=== PATIENT | female | born 1950 | race Caucasian/White ===

== ENCOUNTER 2024-11-01 09:37 | Outpatient (OUT) | payer MEDICARE, SELFPAY ==
--- NOTE | 2024-11-01 09:45 | US_ITS ---
The [address] [address] Patient Name: BUSTER LEIJA MRN: [id number] date: 1950 Sex: F Assigned Patient Location: US Current Patient Location: Accession/Order Number: [id number] Exam Date: 11/01/2024 09:50 Report Date: 11/01/2024 10:48 At the request of: JERALD JONES Procedure: US thyroid EXAMINATION: US thyroid HISTORY: Thyroid Nodule, Primary Hypertension COMPARISON: 03/04/2022 TECHNIQUE: Sonographic images of the thyroid gland were obtained. FINDINGS: The right thyroid lobe measures 4.8 x 1.1 x 1.2 cm. Mildly heterogeneous echotexture with 2 focal nodules. The thyroid isthmus measures 2 mm, single nodule The left thyroid lobe measures 4.5 x 1.2 x 1.0 cm. Heterogeneous echotexture with a single 8mm cystic nodule The most suspicious nodule: Right lower lobe. 0.6 x 1.0 x 0.8 cm. Solid, isoechoic, wide, smooth margins, no calcifications. TR 3 US/US thyroid IMPRESSION: Multinodular thyroid gland TI-RADS: TR 3 Electronically authenticated by: RONNIE DUTTA Date: 11/01/2024 10:48
[2024-11-01 10:51] LABS: Basophils Percent Auto 0.6 % (0.2-2.0); Eosinophils Absolute Auto 0.1 10^3/uL (0.0-0.7); Eosinophils Percent Auto 1.3 % (0.9-7.0); Hematocrit 43.5 % (36.0-48.0); Hemoglobin 14.8 g/dL (12.0-16.0); Immature Granulocytes Abs Auto 0.01 10^3/uL (0.00-0.03); Immature Granulocytes Pct Auto 0.2 % (0.0-0.5); Lymphocytes Absolute Auto 1.3 10^3/uL (1.2-3.8); Lymphocytes Percent Auto 23.6 % (20.5-60.0); Mean Corpuscular Hemoglobin 31.4 pg (26.7-34.0); Mean Corpuscular Volume 92.2 fL (81.0-99.0); Mean Platelet Volume 10.1 fL (9.5-13.5); Monocytes Absolute Auto 0.6 10^3/uL (0.3-0.8); Monocytes Percent Auto 10.7 % (1.7-12.0); Neutrophils Absolute Auto 3.5 10^3/uL (1.4-6.5); Neutrophils Percent Auto 63.6 % (43.0-75.0); Platelet Count 216 10^3/uL (150-450); Red Blood Count 4.72 10^6/uL (4.20-5.40); Red Cell Distribution Width 11.9 % (11.0-15.0); White Blood Count 5.4 10^3/uL (4.0-11.0)
[2024-11-01 11:09] LABS: Creatinine Urine Random 25.59 mg/dL (20.00-300.00); Microalbum Creatinine Ratio Ur 50.8 mg/g (0.0-29.9); Microalbumin Urine Random <1.3 mg/dL (<=30.0)
[2024-11-01 11:38] LABS: Anion Gap 7.6; BUN Creatinine Ratio 31.7; Calcium 9.3 mg/dL (8.5-10.1); Carbon Dioxide 32.2 mmol/L (21.0-32.0); Chloride 105 mmol/L (98-107); Estimated GFR (African America >60 (>=60 mL/min/1.73m^2); Estimated GFR (Non-African Ame >60 (>=60 mL/min/1.73m^2); Glucose 102 mg/dL (74-106); Potassium 4.8 mmol/L (3.5-5.1); Sodium 140 mmol/L (136-145)
== END 2024-11-01 09:38 | disposition home or self-care (01) ==
LOC: US 09:37
PROVIDERS: Family Provider Family Medicine; PCP Family Medicine; Visit Provider Family Medicine
DX: E04.1 Nontoxic single thyroid nodule (principal); I10 Essential (primary) hypertension; E04.2 Nontoxic multinodular goiter
CPT/HCPCS: 36415; 76536; 80048; 82043; 82570; 85025